=== PATIENT | female | born 1955 | race Caucasian/White ===

== ENCOUNTER → 2016-08-10 | Outpatient (CLI) | payer OTHER | LOC: WI 10:57 | PROVIDERS: ATTEND Surgery | DX: Z12.31 Encounter for screening mammogram for malignant neoplasm of breast (principal); R92.0 Mammographic microcalcification found on diagnostic imaging of breast | CPT/HCPCS: G0202-52 ==

== ENCOUNTER → 2016-08-20 | Outpatient (CLI) | payer OTHER | LOC: WI 08:56 | PROVIDERS: ATTEND Surgery | DX: R92.2 Inconclusive mammogram (principal) | CPT/HCPCS: G0204-52 ==

== ENCOUNTER → 2017-08-11 | Outpatient (CLI) | payer OTHER ==
--- NOTE | 2017-08-12 09:04 | WOMENS IMAGING REPORT ---
EXAM DESCRIPTION: LEFT SCREENING MAMMO W/CAD COMPLETED DATE/TIME: 08/11/2017 1:49 pm REASON FOR STUDY: SCREENING MAMMO Z12.31 ENCNTR SCREEN MAMMOGRAM FOR MALIGNANT NEOPLASM OF JOHN COMPARISON: Multiple since 2010 TECHNIQUE: Standard craniocaudal and mediolateral oblique views of the breast recorded using digital acquisition. LIMITATIONS: None. FINDINGS: BREAST: Left Findings present which are benign by mammographic criteria. No suspicious masses, calcifications or a rchitectural distortion. Pertinent benign findings: Benign coarse dense left breast calcifications 12 o'clock position. Old s tereotactic biopsy clip left breast periareolar region 1 o'clock position Read with the assistance of CAD. .[facility] - R2 Cenova Version 1.3 .[facility] - R2 Cenova Version 1.3 .[facility] - R2 Cenova Version 2.4 .[facility] [place] R2 Cenova Version 2.4 .[facility] - R2 Workers [employer] Version 9.2 Benign mammographic findings may include one or more of the following: Smooth masses, popcorn/rim/co arse calcifications, asymmetries, post-procedure changes, and lesions with long-standing stability. IMPRESSION: NORMAL MAMMOGRAM. BIRADS 2. BREAST DENSITY: d. The breasts are extremely dense, which lowers the sensitivity of mammography. BIRAD: 2 BENIGN FINDING(S) RECOMMENDATION: RECOMMENDATION: ROUTINE SCREENING. Please continue yearly left breast mammographic screening in July 2018. Because of extremely den se fibroglandular tissue, please consider left breast tomosynthesis COMMENT: The patient has been notified of the results by letter per MQSA requirements. Additional no tification policies are in place for contacting patient with suspicious or incomplete findings. Quality ID #[id number]: The [employer] recommends an annual screening mammogram for women aged 40 years or over. This facility utilizes a reminder system to ensure that all patients receive reminder letters, and/or direct phone calls for appointments. This includes reminders for routine scr eening mammograms, diagnostic mammograms, or other Breast Imaging Interventions when appropriate. Th is patient will be placed in the appropriate reminder system. The [employer] ([employer]) has developed recommendations for screening MRI of the breast s in certain patient populations, to be used in conjunction with mammography. Breast MRI surveillance may be appropriate for women with more than 20% lifetime risk of developing breast cancer as determi rosemary by genetic testing, significant family history of the disease, or history of mantle radiation for Hodgkins Disease. ACR Practice Guidelines 2008. TECHNICAL DOCUMENTATION: FINDING NUMBER: (1) ASSESSMENT: (1) JOB ID: [id number] [employer]- All Rights Reserved
== END ==
LOC: WI 12:43
PROVIDERS: ATTEND Surgery
DX: Z12.31 Encounter for screening mammogram for malignant neoplasm of breast (principal)

== ENCOUNTER → 2018-08-15 | Outpatient (CLI) | payer OTHER ==
--- NOTE | 2018-08-15 11:07 | WOMENS IMAGING REPORT ---
EXAM DESCRIPTION: LEFT SCREENING MAMMO W/CAD COMPLETED DATE/TIME: 08/15/2018 9:50 am REASON FOR STUDY: Z12.31 SCREENING MAMMO Z12.31 ENCNTR SCREEN MAMMOGRAM FOR MALIGNANT NEOPLASM OF B RE COMPARISON: [id number] TECHNIQUE: Standard craniocaudal and mediolateral oblique views of the breast recorded using digital acquisition. LIMITATIONS: None. FINDINGS: BREAST: left No masses, calcifications or architectural distortion. No areas of suspicion. Read with the assistance of CAD. .[facility] - R2 Cenova Version 1.3 .[facility] - R2 Cenova Version 2.1 .[facility] - R2 Cenova Version 2.4 .[facility] [place] - R2 Cenova Version 2.4 .[facility] - R2 Lumber Driver Version 9.2 IMPRESSION: NORMAL MAMMOGRAM. BIRADS 1. BREAST DENSITY: c. The breasts are heterogeneously dense, which may obscure small masses. BIRAD: 1 NEGATIVE RECOMMENDATION: RECOMMENDATION: ROUTINE SCREENING. COMMENT: The patient has been notified of the results by letter per SA requirements. Additional no tification policies are in place for contacting patient with suspicious or incomplete findings. Quality ID #[id number]: The [employer] recommends an annual screening mammogram for women aged 40 years or over. This facility utilizes a reminder system to ensure that all patients receive reminder letters, and/or direct phone calls for appointments. This includes reminders for routine scr eening mammograms, diagnostic mammograms, or other Breast Imaging Interventions when appropriate. Th is patient will be placed in the appropriate reminder system. The [employer] (ACR) has developed recommendations for screening MRI of the breast s in certain patient populations, to be used in conjunction with mammography. Breast MRI surveillance may be appropriate for women with more than 20% lifetime risk of developing breast cancer as determi rosemary by genetic testing, significant family history of the disease, or history of mantle radiation for Hodgkins Disease. ACR Practice Guidelines 2008. TECHNICAL DOCUMENTATION: FINDING NUMBER: (1) ASSESSMENT: (1) JOB ID: [id number] [employer]- All Rights Reserved Reading location - IP/workstation name: [email or web address]
== END ==
LOC: WI 09:31
PROVIDERS: ATTEND Surgery
DX: Z12.31 Encounter for screening mammogram for malignant neoplasm of breast (principal)